=== PATIENT | female | born 1955 | race Caucasian/White ===

== ENCOUNTER 2020-02-12 01:32 | Observation (INO) ==
[2020-02-12] MEDS ORDERED: MORPHINE 4 MG/1 ML VIAL IV STA (01:58)
[2020-02-12] MEDS ORDERED: ALUM/MAG/SIMETH/LIDO VISC 1:1 30 ML BOTTLE PO STA (01:58)
[2020-02-12] MEDS ORDERED: ASPIRIN 325 MG TABLET PO STA (01:58)
[2020-02-12] MEDS ORDERED: ONDANSETRON 4 MG/2 ML VIAL IV STA (01:58)
[2020-02-12] MEDS ORDERED: NITROGLYCERIN 2% OINT 1 INCH/GM PACK TOP STA (01:58)
[2020-02-12] MEDS ORDERED: ENOXAPARIN 100 MG/ML SYRINGE SUBCUT STA (01:58)
[2020-02-12 02:17] LABS: Basophils # 0.1 10*3/uL (0.0-0.2); Basophils % 0.8 % (0.0-0.8); Eosinophils # 0.2 10*3/uL (0.0-0.87); Eosinophils % 2.3 % (0.00-10.9); Hematocrit 37.4 VOL% (35.7-47.0); Hemoglobin 12.7 GM/DL (12.0-16.0); Immature Granulocytes % 0.5 %; Immature Granulocytes Absolute 0.05 #; Lymphocytes # 2.4 10*3/uL (1.4-4.0); Mean Corpuscular Volume 94.2 FL (87-102); Mean Platelet Volume 10.8 FL (9.6-12.0); Monocytes % 6.9 % (1.7-12.7); Neutrophils % 65.5 % (38.7-73.9); Platelet Count 334 T/CUMM (130-400); Red Blood Count 3.97 MC/CUMM (3.8-5.5); Red Cell Distribution Width 14.4 % (9.3-17.3); White Blood Count 9.9 T/CUMM (4-12)
[2020-02-12 02:36] LABS: INR 0.9; PT Patient Result 10.1 SECS (9.8-11.9)
[2020-02-12 03:09] LABS: Bilirubin,Total 0.4 MG/DL (0.2-1.0); Calcium 8.5 MG/DL (8.5-10.1); Osmolality,Calculated 273.1 MOS/KG (273-304); Total Protein 7.2 G/DL (6.4-8.3)
[2020-02-12] MEDS ORDERED: GLUCAGON 1 MG VIAL IM PRN (04:07)
[2020-02-12] MEDS ORDERED: DEXTROSE 50% 25 GM/50 ML VIAL IV PRN (04:07)
[2020-02-12] MEDS ORDERED: MORPHINE 4 MG/1 ML VIAL IV PRN (04:07)
[2020-02-12] MEDS ORDERED: ACETAMINOPHEN 325 MG TABLET PO PRN (04:07)
[2020-02-12] MEDS ORDERED: ONDANSETRON 4 MG/2 ML VIAL IV PRN (04:07)
[2020-02-12] MEDS ORDERED: diphenhydrAMINE CAP 25 MG CAPSULE PO PRN (04:07)
[2020-02-12] MEDS ORDERED: guaiFENesin/DM ER 600-30 MG TABLET PO PRN (04:07)
[2020-02-12] MEDS ORDERED: NICOTINE 21 MG/24 HR PATCH TRANSDERM PRN (04:07)
[2020-02-12] MEDS ORDERED: hydrALAZINE 20 MG/1 ML VIAL IV PRN (04:07)
[2020-02-12 05:11] LABS: Risk Ratio 5.5; Thyroid Stimulating Hormone 1.11 uIU/ml (0.358-3.74)
[2020-02-12] MEDS: SODIUM CHLORIDE 0.9% 1,000 ML IV SCH ×2 (08:44→18:35)
[2020-02-12] MEDS: PARoxetine 20 MG TABLET PO SCH (08:45)
[2020-02-12] MEDS: ALPRAZolam 0.5 MG TABLET PO SCH ×4 (08:45→21:57)
[2020-02-12] MEDS: PANTOPRAZOLE 40 MG TABLET PO SCH (08:45)
[2020-02-12] MEDS ORDERED: MAGNESIUM SULF RIDER 2 GM in PREMIX 1 EACH IV PRN (13:08)
[2020-02-12] MEDS ORDERED: POTASSIUM CHLORIDE RIDER 10 MEQ in PREMIX 1 EACH IV PRN (13:08)
[2020-02-12] MEDS ORDERED: TRIAZOLAM PO SCH (21:00)
[2020-02-12] MEDS: OLMESARTAN 20 MG TABLET PO SCH (21:57)
[2020-02-12] MEDS: ROSUVASTATIN 20 MG TABLET PO SCH (21:57)
[2020-02-12] MEDS: METOPROLOL TARTRATE 25 MG TABLET PO SCH (21:57)
[2020-02-12] MEDS: LORazepam 0.5 MG TABLET PO PRN (23:42)
[2020-02-13] MEDS: SODIUM CHLORIDE 0.9% 1,000 ML IV SCH ×4 (01:36→20:13)
[2020-02-13 01:43] LABS: Apearance,Urine Slightly Hazy (Clear); Bacteria,Urine Occasional /HPF (Few); Bilirubin,Urine Negative (Negative); Blood, Urine Negative (Negative); Glucose,Urine (UA) Negative (Negative); Ketones,Urine Negative (Negative); Mucus,Urine Occasional /LPF (Occasional); Nitrite,Urine Negative (Negative); Protein,Urine Negative; RBC,Urine 1 /HPF (0-4); Squamous Epithelial Cell,Urine Occasional /HPF (0-10); Urine Color Yellow (Yellow); Urine Urobilinogen < 2.0 EU/DL (0.2-1.0); WBC,Urine 169 /HPF (0-6)
[2020-02-13 04:09] LABS: Basophils # 0.1 10*3/uL (0.0-0.2); Basophils % 0.9 % (0.0-0.8); Eosinophils # 0.2 10*3/uL (0.0-0.87); Eosinophils % 3.2 % (0.00-10.9); Hematocrit 35.6 VOL% (35.7-47.0); Hemoglobin 11.8 GM/DL (12.0-16.0); Immature Granulocytes % 0.4 %; Immature Granulocytes Absolute 0.03 #; Lymphocytes # 2.7 10*3/uL (1.4-4.0); Lymphocytes % 39.7 % (21.3-54.2); Mean Corpuscular HGB Conc 33.1 GM/DL (32-36); Mean Corpuscular Volume 94.2 FL (87-102); Mean Platelet Volume 10.4 FL (9.6-12.0); Monocytes % 7.7 % (1.7-12.7); Neutrophils % 48.1 % (38.7-73.9); Platelet Count 236 T/CUMM (130-400); Red Blood Count 3.78 MC/CUMM (3.8-5.5); Red Cell Distribution Width 14.3 % (9.3-17.3); White Blood Count 6.8 T/CUMM (4-12)
[2020-02-13 04:35] LABS: Calcium 8.5 MG/DL (8.5-10.1); Osmolality,Calculated 281.3 MOS/KG (273-304)
[2020-02-13] MEDS ORDERED: DIAZEPAM 5 MG TABLET PO ONE (06:00)
[2020-02-13] MEDS ORDERED: diphenhydrAMINE CAP 25 MG CAPSULE PO ONE (06:00)
[2020-02-13] MEDS: PARoxetine 20 MG TABLET PO SCH (08:59)
[2020-02-13] MEDS: ASPIRIN 325 MG TABLET PO SCH (09:00)
[2020-02-13] MEDS: METOPROLOL TARTRATE 25 MG TABLET PO SCH ×2 (09:00→21:16)
[2020-02-13] MEDS: PANTOPRAZOLE 40 MG TABLET PO SCH (09:00)
[2020-02-13] MEDS ORDERED: LIDOCAINE 1% 20 ML VIAL ONE (09:37)
[2020-02-13] MEDS ORDERED: NITROGLYCERIN DRIP 50 MG/250 ML BOTTLE IV ONE (09:37)
[2020-02-13] MEDS ORDERED: VERAPAMIL 5 MG/2 ML VIAL ONE (09:37)
[2020-02-13] MEDS ORDERED: MIDAZOLAM 2 MG/2 ML VIAL ONE (09:51)
[2020-02-13] MEDS ORDERED: HYDROmorphone 2 MG/1 ML VIAL ONE (09:51)
[2020-02-13] MEDS ORDERED: ENOXAPARIN 60 MG/0.6 ML SYRINGE ONE ×2 (10:07)
[2020-02-13] MEDS: ALPRAZolam 0.5 MG TABLET PO SCH ×3 (12:20→21:16)
[2020-02-13] MEDS: cefTRIAXone 1,000 MG in SYRINGE 1 EACH IV SCH (12:25)
[2020-02-13] MEDS: OLMESARTAN 20 MG TABLET PO SCH (21:16)
[2020-02-13] MEDS: ROSUVASTATIN 20 MG TABLET PO SCH (21:16)
[2020-02-13] MEDS: LORazepam 0.5 MG TABLET PO PRN (23:55)
[2020-02-14 05:04] LABS: Basophils # 0.1 10*3/uL (0.0-0.2); Basophils % 0.7 % (0.0-0.8); Eosinophils # 0.2 10*3/uL (0.0-0.87); Eosinophils % 2.9 % (0.00-10.9); Hematocrit 32.8 VOL% (35.7-47.0); Hemoglobin 10.9 GM/DL (12.0-16.0); Immature Granulocytes % 0.3 %; Immature Granulocytes Absolute 0.02 #; Lymphocytes # 2.1 10*3/uL (1.4-4.0); Mean Corpuscular HGB Conc 33.2 GM/DL (32-36); Mean Corpuscular Volume 94.8 FL (87-102); Mean Platelet Volume 10.6 FL (9.6-12.0); Monocytes % 6.7 % (1.7-12.7); Neutrophils % 58.4 % (38.7-73.9); Platelet Count 228 T/CUMM (130-400); Red Blood Count 3.46 MC/CUMM (3.8-5.5); Red Cell Distribution Width 14.1 % (9.3-17.3); White Blood Count 6.9 T/CUMM (4-12)
[2020-02-14 05:13] LABS: Calcium 8.1 MG/DL (8.5-10.1); Osmolality,Calculated 283.1 MOS/KG (273-304)
[2020-02-14 05:15] LABS: Calcium 7.9 MG/DL (8.5-10.1); Osmolality,Calculated 281.3 MOS/KG (273-304)
[2020-02-14] MEDS ORDERED: POTASSIUM CHLORIDE 20 MEQ TABLET PO ONE (07:29)
[2020-02-14] MEDS: cefTRIAXone 1,000 MG in SYRINGE 1 EACH IV SCH (08:24)
[2020-02-14] MEDS: PARoxetine 20 MG TABLET PO SCH (08:25)
[2020-02-14] MEDS: PANTOPRAZOLE 40 MG TABLET PO SCH (08:25)
[2020-02-14] MEDS: ASPIRIN 325 MG TABLET PO SCH (08:26)
[2020-02-14] MEDS: ALPRAZolam 0.5 MG TABLET PO SCH (08:26)
[2020-02-14] MEDS: METOPROLOL TARTRATE 25 MG TABLET PO SCH (08:26)
[2020-02-14 11:59] VITALS: BP 117/69
== END 2020-02-14 12:12 | disposition home or self-care (01) ==
LOC: EDUNIT# → EDBD → N.ED 01:32 → N.EDINP 01:32 → SUATTDRO 04:07 → N.EDINP 05:00 → N.TELES 05:13
PROVIDERS: ADMIT Internal Medicine; ATTEND Internal Medicine
PROC: CLCCHCL (ICD-10-PCS; 2020-02-13 10:45)

== ENCOUNTER 2022-08-10 15:49 | Inpatient (IN) ==
[2022-08-10 16:31] LABS: Basophils % 0.5 % (0.0-0.8); Eosinophils # 0.2 10*3/uL (0.0-0.87); Eosinophils % 2.3 % (0.00-10.9); Hemoglobin 13.5 GM/DL (12.0-16.0); Immature Granulocytes % 0.5 %; Immature Granulocytes Absolute 0.04 #; Lymphocytes # 1.5 10*3/uL (1.4-4.0); Lymphocytes % 18.1 % (21.3-54.2); Mean Corpuscular HGB Conc 35.5 GM/DL (32-36); Mean Corpuscular Volume 89.8 FL (87-102); Mean Platelet Volume 10.3 FL (9.6-12.0); Monocytes # 0.4 10*3/uL (0.11-0.8); Monocytes % 4.5 % (1.7-12.7); Neutrophils % 74.1 % (38.7-73.9); Platelet Count 268 T/CUMM (130-400); Red Blood Count 4.23 MC/CUMM (3.8-5.5); Red Cell Distribution Width 15.4 % (9.3-17.3); White Blood Count 8.1 T/CUMM (4-12)
[2022-08-10] MEDS ORDERED: ALUM/MAG/SIMETH/LIDO VISC 1:1 30 ML BOTTLE PO ONE (16:36)
[2022-08-10 16:40] LABS: Albumin 3.2 G/DL (3.4-5.0); Bilirubin,Total 0.4 MG/DL (0.20-1.00); Potassium 2.9 MMOL/L (3.5-5.1); Total Protein 7.2 G/DL (6.4-8.2)
[2022-08-10] MEDS ORDERED: POTASSIUM CHLORIDE 20 MEQ TABLET PO STA ×2 (16:51→18:53)
[2022-08-10] MEDS ORDERED: SODIUM CHLORIDE 0.9% 1,000 ML IV STA (16:53)
[2022-08-10] MEDS ORDERED: HYDROmorphone 1 MG/1 ML SYRINGE IV STA (18:08)
[2022-08-10] MEDS ORDERED: ONDANSETRON 4 MG/2 ML VIAL IV STA (18:08)
[2022-08-10] MEDS ORDERED: HYDROmorphone 1 MG/1 ML SYRINGE ONE (18:10)
[2022-08-10] MEDS ORDERED: ONDANSETRON 4 MG/2 ML VIAL ONE (18:10)
[2022-08-10] MEDS ORDERED: NICOTINE 21 MG/24 HR PATCH TRANSDERM PRN (18:53)
[2022-08-10] MEDS ORDERED: CALCIUM CARBONATE CHEW 500 MG TABLET PO PRN (18:53)
[2022-08-10] MEDS ORDERED: PROMETHAZINE 25 MG/1 ML VIAL IM PRN (18:53)
[2022-08-10] MEDS: LACTATED RINGERS 1,000 ML IV SCH (19:24)
[2022-08-10] MEDS ORDERED: IBUPROFEN 800 MG TABLET PO PRN (21:59)
[2022-08-10] MEDS: ALPRAZolam 0.5 MG TABLET PO SCH (22:41)
[2022-08-10] MEDS: ENOXAPARIN 40 MG/0.4 ML SYRINGE SUBCUT SCH (22:41)
[2022-08-10] MEDS: HYDROmorphone 1 MG/1 ML SYRINGE IV PRN (22:41)
[2022-08-10] MEDS: COLESTIPOL 1 GM TABLET PO SCH (22:41)
[2022-08-10] MEDS: PANTOPRAZOLE 40 MG TABLET PO SCH (22:42)
[2022-08-10] MEDS: GABAPENTIN 600 MG TABLET PO SCH (22:42)
[2022-08-11] MEDS: LACTATED RINGERS 1,000 ML IV SCH ×3 (03:59→20:45)
[2022-08-11] MEDS: HYDROmorphone 1 MG/1 ML SYRINGE IV PRN ×4 (04:37→22:53)
[2022-08-11 05:57] LABS: Basophils % 0.3 % (0.0-0.8); Eosinophils # 0.2 10*3/uL (0.0-0.87); Eosinophils % 2.4 % (0.00-10.9); Hematocrit 39.3 VOL% (35.7-47.0); Hemoglobin 13.2 GM/DL (12.0-16.0); Immature Granulocytes % 0.3 %; Immature Granulocytes Absolute 0.03 #; Lymphocytes # 1.5 10*3/uL (1.4-4.0); Lymphocytes % 16.2 % (21.3-54.2); Mean Corpuscular HGB Conc 33.6 GM/DL (32-36); Mean Corpuscular Volume 93.6 FL (87-102); Mean Platelet Volume 11.3 FL (9.6-12.0); Monocytes # 0.5 10*3/uL (0.11-0.8); Neutrophils % 75.8 % (38.7-73.9); Platelet Count 243 T/CUMM (130-400); Red Cell Distribution Width 15.6 % (9.3-17.3); White Blood Count 9.5 T/CUMM (4-12)
[2022-08-11 06:15] LABS: Calcium 8.7 MG/DL (8.5-10.1); Potassium 3.5 MMOL/L (3.5-5.1)
[2022-08-11] MEDS: COLESTIPOL 1 GM TABLET PO SCH ×2 (08:50→20:47)
[2022-08-11] MEDS: ALPRAZolam 0.5 MG TABLET PO SCH ×2 (08:50→20:48)
[2022-08-11] MEDS: GABAPENTIN 600 MG TABLET PO SCH ×3 (08:50→20:47)
[2022-08-11] MEDS: VALSARTAN 160 MG TABLET PO SCH (08:50)
[2022-08-11] MEDS: NON-FORMULARY MEDICATION (Fluticasone-Umeclidin-Vilanter [Trelegy Ellipta] 200-62.5-25 mcg INH SCH ×2 (08:58→20:46)
[2022-08-11] MEDS ORDERED: hydroCHLOROthiazide 25 MG TABLET PO SCH (09:00)
[2022-08-11] MEDS ORDERED: ALPRAZolam 0.5 MG TABLET PO SCH (09:00)
[2022-08-11] MEDS ORDERED: SODIUM CHLORIDE 0.9% 500 ML IV ONE (16:05)
[2022-08-11] MEDS: ENOXAPARIN 40 MG/0.4 ML SYRINGE SUBCUT SCH (20:47)
[2022-08-11] MEDS: PANTOPRAZOLE 40 MG TABLET PO SCH (20:48)
[2022-08-11] MEDS: PARoxetine 20 MG TABLET PO SCH (20:48)
[2022-08-12] MEDS: HYDROmorphone 1 MG/1 ML SYRINGE IV PRN ×3 (03:12→21:32)
[2022-08-12] MEDS: LACTATED RINGERS 1,000 ML IV SCH ×4 (04:48→21:32)
[2022-08-12 06:10] LABS: Basophils % 0.4 % (0.0-0.8); Eosinophils # 0.2 10*3/uL (0.0-0.87); Hematocrit 37.5 VOL% (35.7-47.0); Hemoglobin 12.6 GM/DL (12.0-16.0); Immature Granulocytes % 0.5 %; Immature Granulocytes Absolute 0.06 #; Lymphocytes # 2.5 10*3/uL (1.4-4.0); Mean Corpuscular HGB Conc 33.6 GM/DL (32-36); Mean Corpuscular Volume 96.2 FL (87-102); Mean Platelet Volume 10.5 FL (9.6-12.0); Monocytes # 0.6 10*3/uL (0.11-0.8); Monocytes % 5.7 % (1.7-12.7); Neutrophils % 69.4 % (38.7-73.9); Platelet Count 271 T/CUMM (130-400); White Blood Count 11.3 T/CUMM (4-12)
[2022-08-12 06:19] LABS: Calcium 8.8 MG/DL (8.5-10.1); Osmolality,Calculated 273.1 MOS/KG (273-304); Potassium 3.3 MMOL/L (3.5-5.1)
[2022-08-12] MEDS: COLESTIPOL 1 GM TABLET PO SCH ×2 (08:35→21:28)
[2022-08-12] MEDS: GABAPENTIN 600 MG TABLET PO SCH ×3 (08:35→21:28)
[2022-08-12] MEDS: ALPRAZolam 0.5 MG TABLET PO SCH ×2 (08:35→21:28)
[2022-08-12] MEDS: VALSARTAN 160 MG TABLET PO SCH (08:37)
[2022-08-12] MEDS: NON-FORMULARY MEDICATION (Fluticasone-Umeclidin-Vilanter [Trelegy Ellipta] 200-62.5-25 mcg INH SCH (08:37)
[2022-08-12] MEDS: PANTOPRAZOLE 40 MG TABLET PO SCH (21:27)
[2022-08-12] MEDS: ENOXAPARIN 40 MG/0.4 ML SYRINGE SUBCUT SCH (21:27)
[2022-08-12] MEDS: PARoxetine 20 MG TABLET PO SCH (21:27)
[2022-08-13] MEDS: LACTATED RINGERS 1,000 ML IV SCH (05:35)
[2022-08-13 06:18] LABS: Basophils % 0.4 % (0.0-0.8); Eosinophils # 0.2 10*3/uL (0.0-0.87); Eosinophils % 2.9 % (0.00-10.9); Hematocrit 31.1 VOL% (35.7-47.0); Hemoglobin 10.5 GM/DL (12.0-16.0); Immature Granulocytes % 0.5 %; Immature Granulocytes Absolute 0.04 #; Lymphocytes # 1.5 10*3/uL (1.4-4.0); Lymphocytes % 19.5 % (21.3-54.2); Mean Corpuscular HGB Conc 33.8 GM/DL (32-36); Mean Corpuscular Volume 93.1 FL (87-102); Mean Platelet Volume 10.3 FL (9.6-12.0); Monocytes # 0.4 10*3/uL (0.11-0.8); Monocytes % 5.2 % (1.7-12.7); Neutrophils % 71.5 % (38.7-73.9); Platelet Count 195 T/CUMM (130-400); Red Blood Count 3.34 MC/CUMM (3.8-5.5); Red Cell Distribution Width 15.2 % (9.3-17.3); White Blood Count 7.5 T/CUMM (4-12)
[2022-08-13] MEDS: HYDROmorphone 1 MG/1 ML SYRINGE IV PRN (06:27)
[2022-08-13 06:37] LABS: Calcium 8.6 MG/DL (8.5-10.1); Osmolality,Calculated 273.8 MOS/KG (273-304)
[2022-08-13] MEDS: COLESTIPOL 1 GM TABLET PO SCH (08:22)
[2022-08-13] MEDS: ALPRAZolam 0.5 MG TABLET PO SCH (08:22)
[2022-08-13] MEDS: VALSARTAN 160 MG TABLET PO SCH (08:22)
[2022-08-13] MEDS: GABAPENTIN 600 MG TABLET PO SCH (08:22)
[2022-08-13] MEDS ORDERED: NON-FORMULARY MEDICATION (Fluticasone-Umeclidin-Vilanter [Trelegy Ellipta] 200-62.5-25 mcg INH SCH (09:00)
[2022-08-13] MEDS ORDERED: POTASSIUM CHLORIDE 20 MEQ TABLET PO ONE (10:00)
[2022-08-13 11:12] VITALS: BP 106/62
== END 2022-08-13 13:47 | disposition home or self-care (01) | DRG 439 ==
LOC: N.ED 15:49 → N.EDINP 18:53 → N.3E 19:50
PROVIDERS: ADMIT Hospitalist; ATTEND Hospitalist

== ENCOUNTER 2022-08-27 02:32 | Inpatient (IN) ==
[2022-08-27] MEDS ORDERED: SODIUM CHLORIDE 0.9% 1,000 ML IV STA (02:48)
[2022-08-27] MEDS ORDERED: HYDROmorphone 1 MG/1 ML SYRINGE IV STA (02:48)
[2022-08-27] MEDS ORDERED: PANTOPRAZOLE 40 MG VIAL IV STA (02:48)
[2022-08-27] MEDS ORDERED: ONDANSETRON 4 MG/2 ML VIAL IV STA (02:48)
[2022-08-27 03:06] LABS: Basophils % 0.5 % (0.0-0.8); Eosinophils # 0.2 10*3/uL (0.0-0.87); Eosinophils % 1.8 % (0.00-10.9); Hemoglobin 12.5 GM/DL (12.0-16.0); Immature Granulocytes % 0.5 %; Immature Granulocytes Absolute 0.04 #; Lymphocytes # 2.3 10*3/uL (1.4-4.0); Lymphocytes % 28.7 % (21.3-54.2); Mean Corpuscular HGB Conc 33.8 GM/DL (32-36); Mean Corpuscular Volume 93.9 FL (87-102); Mean Platelet Volume 9.2 FL (9.6-12.0); Monocytes # 0.4 10*3/uL (0.11-0.8); Monocytes % 5.1 % (1.7-12.7); Neutrophils % 63.4 % (38.7-73.9); Platelet Count 401 T/CUMM (130-400); Red Blood Count 3.94 MC/CUMM (3.8-5.5); Red Cell Distribution Width 15.8 % (9.3-17.3); White Blood Count 8.2 T/CUMM (4-12)
[2022-08-27 03:27] LABS: Alanine Aminotransferase 11 U/L (13-56); Albumin 3.1 G/DL (3.4-5.0); Alkaline Phosphatase 77 U/L (45-117); Amylase 460 U/L (25-115); Aspartate Amino Transferase 7 U/L (0-37); Bilirubin,Total < 0.39 MG/DL (0.20-1.00); Blood Urea Nitrogen 17 MG/DL (7-18); Calcium 9.2 MG/DL (8.5-10.1); Carbon Dioxide 21 MMOL/L (21-32); Chloride 108 MMOL/L (98-107); Glucose 105 MG/DL (74-106); Osmolality,Calculated 280.4 MOS/KG (273-304); Potassium 3.3 MMOL/L (3.5-5.1); Sodium 140 MMOL/L (136-145); Total Protein 6.8 G/DL (6.4-8.2)
[2022-08-27] MEDS ORDERED: NICOTINE 21 MG/24 HR PATCH TRANSDERM PRN (04:33)
[2022-08-27] MEDS ORDERED: POTASSIUM CHLORIDE RIDER 10 MEQ/100 ML PREMIX IV ONE (04:33)
[2022-08-27] MEDS ORDERED: hydrALAZINE 20 MG/1 ML VIAL IV PRN (04:33)
[2022-08-27] MEDS ORDERED: ALBUTEROL/IPRATROPIUM 3 ML NEB RESP TX PRN (05:04)
[2022-08-27] MEDS: HYDROmorphone 1 MG/1 ML SYRINGE IV PRN ×5 (05:10→17:43)
[2022-08-27] MEDS: LACTATED RINGERS 1,000 ML IV SCH ×2 (05:16→17:42)
[2022-08-27] MEDS: ONDANSETRON 4 MG/2 ML VIAL IV PRN ×4 (06:57→21:26)
[2022-08-27 07:05] LABS: Bacteria,Urine Occasional /HPF (Few); Mucus,Urine Occasional /LPF (Occasional); RBC,Urine 7 /HPF (0-4); Squamous Epithelial Cell,Urine Occasional /HPF (0-10)
[2022-08-27 07:07] LABS: Bilirubin,Urine Negative (Negative); Blood, Urine Trace mg/dL (Negative); Glucose,Urine (UA) Negative (Negative); Ketones,Urine Negative (Negative); Nitrite,Urine Positive (Negative); Protein,Urine Trace mg/dL (Negative); Urine Appearance Slightly Hazy (Clear); Urine Color Yellow (Yellow); Urine Urobilinogen 0.2 eU/dL (<2.0); Urine pH 5.5 (4.5-8.0)
[2022-08-27 07:32] LABS: Barbiturates Screen,Urine Negative (Negative); Benzodiazepines Screen,Urine Positive (Negative); Cannabinoid Screen,Urine Negative (Negative); Opiate Screen,Urine Positive (Negative); Phencyclidine Screen,Urine Negative (Negative)
[2022-08-27] MEDS: cefTRIAXone 1,000 MG in SODIUM CHLORIDE 0.9% 100 ML IV SCH (09:19)
[2022-08-27] MEDS: ENOXAPARIN 40 MG/0.4 ML SYRINGE SUBCUT SCH (21:29)
[2022-08-27] MEDS: fentaNYL 100 MCG/2 ML VIAL IV PRN ×2 (21:36→23:43)
[2022-08-28] MEDS: PROMETHAZINE INJ 25 MG in SODIUM CHLORIDE 0.9% 50 ML IV PRN (00:26)
[2022-08-28] MEDS: LACTATED RINGERS 1,000 ML IV SCH ×4 (00:27→21:27)
[2022-08-28] MEDS: ONDANSETRON 4 MG/2 ML VIAL IV PRN ×3 (04:13→17:46)
[2022-08-28] MEDS: fentaNYL 100 MCG/2 ML VIAL IV PRN (05:46)
[2022-08-28 07:09] LABS: Basophils % 0.1 % (0.0-0.8); Immature Granulocytes % 0.9 %; Immature Granulocytes Absolute 0.18 #; Lymphocytes % 4.7 % (21.3-54.2); Mean Corpuscular HGB Conc 34.9 GM/DL (32-36); Mean Corpuscular Volume 92.5 FL (87-102); Mean Platelet Volume 9.3 FL (9.6-12.0); Monocytes # 0.5 10*3/uL (0.11-0.8); Monocytes % 2.6 % (1.7-12.7); Neutrophils % 91.7 % (38.7-73.9); Platelet Count 410 T/CUMM (130-400); Red Blood Count 4.65 MC/CUMM (3.8-5.5); Red Cell Distribution Width 16.3 % (9.3-17.3); White Blood Count 21.2 T/CUMM (4-12)
[2022-08-28 07:14] LABS: Band Neutrophils 1 % (0-10); Lymphocytes 2 % (20-55); Platelet Estimate Adequate; Total Cells Counted 100
[2022-08-28 07:48] LABS: Albumin 3.2 G/DL (3.4-5.0); Bilirubin,Total 0.5 MG/DL (0.20-1.00); Calcium 9.8 MG/DL (8.5-10.1); Osmolality,Calculated 281.5 MOS/KG (273-304); Potassium 3.2 MMOL/L (3.5-5.1); Total Protein 6.7 G/DL (6.4-8.2)
[2022-08-28] MEDS: HYDROmorphone 1 MG/1 ML SYRINGE IV PRN ×2 (08:30→17:47)
[2022-08-28] MEDS: cefTRIAXone 1,000 MG in SODIUM CHLORIDE 0.9% 100 ML IV SCH (09:56)
[2022-08-28] MEDS: PANTOPRAZOLE 40 MG VIAL IV SCH (09:56)
[2022-08-28] MEDS: NICOTINE 21 MG/24 HR PATCH TRANSDERM SCH (17:47)
[2022-08-28] MEDS: ENOXAPARIN 40 MG/0.4 ML SYRINGE SUBCUT SCH (21:25)
[2022-08-29] MEDS: HYDROmorphone 1 MG/1 ML SYRINGE IV PRN ×6 (00:26→21:11)
[2022-08-29] MEDS: ONDANSETRON 4 MG/2 ML VIAL IV PRN ×5 (00:29→21:09)
[2022-08-29] MEDS: POTASSIUM CHLORIDE RIDER 10 MEQ/100 ML PREMIX IV PRN ×5 (01:10→09:48)
[2022-08-29] MEDS: LACTATED RINGERS 1,000 ML IV SCH ×4 (01:30→21:14)
[2022-08-29 05:58] LABS: Basophils % 0.1 % (0.0-0.8); Hematocrit 36.6 VOL% (35.7-47.0); Hemoglobin 12.6 GM/DL (12.0-16.0); Immature Granulocytes % 0.7 %; Immature Granulocytes Absolute 0.16 #; Lymphocytes # 1.3 10*3/uL (1.4-4.0); Lymphocytes % 6.1 % (21.3-54.2); Mean Corpuscular HGB Conc 34.4 GM/DL (32-36); Mean Corpuscular Volume 91.5 FL (87-102); Mean Platelet Volume 9.6 FL (9.6-12.0); Monocytes # 0.5 10*3/uL (0.11-0.8); Monocytes % 2.3 % (1.7-12.7); Neutrophils % 90.8 % (38.7-73.9); Platelet Count 391 T/CUMM (130-400); Red Cell Distribution Width 15.9 % (9.3-17.3)
[2022-08-29 06:23] LABS: Band Neutrophils 1 % (0-10); Lymphocytes 4 % (20-55); Platelet Estimate Normal; Total Cells Counted 100
[2022-08-29] MEDS: NICOTINE 21 MG/24 HR PATCH TRANSDERM SCH (09:32)
[2022-08-29] MEDS: PANTOPRAZOLE 40 MG VIAL IV SCH (09:48)
[2022-08-29] MEDS: cefTRIAXone 1,000 MG in SODIUM CHLORIDE 0.9% 100 ML IV SCH (11:27)
[2022-08-29] MEDS ORDERED: POTASSIUM CHLORIDE 20 MEQ TABLET PO ONE (12:32)
[2022-08-29] MEDS: ENOXAPARIN 40 MG/0.4 ML SYRINGE SUBCUT SCH (21:12)
[2022-08-30] MEDS: ONDANSETRON 4 MG/2 ML VIAL IV PRN ×2 (03:26→08:56)
[2022-08-30] MEDS: HYDROmorphone 1 MG/1 ML SYRINGE IV PRN ×5 (03:28→20:53)
[2022-08-30 06:12] LABS: Basophils % 0.2 % (0.0-0.8); Eosinophils % 0.1 % (0.00-10.9); Hematocrit 31.1 VOL% (35.7-47.0); Hemoglobin 10.6 GM/DL (12.0-16.0); Immature Granulocytes % 0.9 %; Immature Granulocytes Absolute 0.12 #; Lymphocytes # 0.9 10*3/uL (1.4-4.0); Lymphocytes % 6.6 % (21.3-54.2); Mean Corpuscular HGB Conc 34.1 GM/DL (32-36); Mean Corpuscular Volume 92.6 FL (87-102); Mean Platelet Volume 9.8 FL (9.6-12.0); Monocytes # 0.4 10*3/uL (0.11-0.8); Monocytes % 2.9 % (1.7-12.7); Neutrophils % 89.3 % (38.7-73.9); Platelet Count 231 T/CUMM (130-400); Red Blood Count 3.36 MC/CUMM (3.8-5.5); Red Cell Distribution Width 16.2 % (9.3-17.3); White Blood Count 13.29 T/CUMM (4-12)
[2022-08-30 06:40] LABS: Calcium 8.2 MG/DL (8.5-10.1); Osmolality,Calculated 275.8 MOS/KG (273-304); Potassium 2.8 MMOL/L (3.5-5.1)
[2022-08-30] MEDS: LACTATED RINGERS 1,000 ML IV SCH ×3 (08:32→18:45)
[2022-08-30] MEDS: NICOTINE 21 MG/24 HR PATCH TRANSDERM SCH (08:55)
[2022-08-30] MEDS: PANTOPRAZOLE 40 MG VIAL IV SCH (08:55)
[2022-08-30] MEDS: cefTRIAXone 1,000 MG in SODIUM CHLORIDE 0.9% 100 ML IV SCH (08:55)
[2022-08-30] MEDS ORDERED: POTASSIUM CHLORIDE 20 MEQ TABLET PO SCH (09:00)
[2022-08-30] MEDS: POTASSIUM CHLORIDE 20 MEQ TABLET PO SCH ×3 (10:30→20:52)
[2022-08-30] MEDS: PROMETHAZINE INJ 25 MG in SODIUM CHLORIDE 0.9% 50 ML IV PRN (15:30)
[2022-08-30] MEDS: ENOXAPARIN 40 MG/0.4 ML SYRINGE SUBCUT SCH (20:52)
[2022-08-31 05:51] LABS: Basophils % 0.2 % (0.0-0.8); Eosinophils # 0.1 10*3/uL (0.0-0.87); Eosinophils % 0.8 % (0.00-10.9); Hematocrit 33.6 VOL% (35.7-47.0); Hemoglobin 11.5 GM/DL (12.0-16.0); Immature Granulocytes % 0.5 %; Immature Granulocytes Absolute 0.06 #; Lymphocytes # 1.4 10*3/uL (1.4-4.0); Lymphocytes % 10.9 % (21.3-54.2); Mean Corpuscular HGB Conc 34.2 GM/DL (32-36); Mean Corpuscular Volume 95.2 FL (87-102); Mean Platelet Volume 10.1 FL (9.6-12.0); Monocytes # 0.6 10*3/uL (0.11-0.8); Monocytes % 4.7 % (1.7-12.7); Neutrophils % 82.9 % (38.7-73.9); Platelet Count 269 T/CUMM (130-400); Red Blood Count 3.53 MC/CUMM (3.8-5.5); White Blood Count 12.66 T/CUMM (4-12)
[2022-08-31 06:03] LABS: Calcium 8.7 MG/DL (8.5-10.1); Osmolality,Calculated 266.4 MOS/KG (273-304)
[2022-08-31] MEDS: HYDROmorphone 1 MG/1 ML SYRINGE IV PRN (06:03)
[2022-08-31 07:31] VITALS: BP 156/83
[2022-08-31] MEDS: LACTATED RINGERS 1,000 ML IV SCH (07:56)
[2022-08-31] MEDS: cefTRIAXone 1,000 MG in SODIUM CHLORIDE 0.9% 100 ML IV SCH (09:15)
[2022-08-31] MEDS: POTASSIUM CHLORIDE 20 MEQ TABLET PO SCH (09:15)
[2022-08-31] MEDS: PANTOPRAZOLE 40 MG VIAL IV SCH (09:15)
[2022-08-31] MEDS: NICOTINE 21 MG/24 HR PATCH TRANSDERM SCH (09:15)
[2022-08-31] MEDS ORDERED: hydrALAZINE 25 MG TABLET PO SCH (21:00)
== END 2022-08-31 12:20 | disposition home or self-care (01) | DRG 439 ==
LOC: EDUNIT# → EDBD → N.ED 02:32 → N.EDINP 04:33 → N.3E 14:50
PROVIDERS: ADMIT Hospitalist; ATTEND Hospitalist

== ENCOUNTER 2022-09-01 15:50 | Inpatient (IN) ==
[2022-09-01] MEDS ORDERED: ONDANSETRON 4 MG/2 ML VIAL IV STA (16:32)
[2022-09-01] MEDS ORDERED: SODIUM CHLORIDE 0.9% 1,000 ML IV STA (16:32)
[2022-09-01] MEDS ORDERED: HYDROmorphone 1 MG/1 ML SYRINGE IV STA (16:32)
[2022-09-01] MEDS ORDERED: PANTOPRAZOLE 40 MG VIAL IV STA (16:32)
[2022-09-01 16:57] LABS: Basophils % 0.2 % (0.0-0.8); Eosinophils # 0.1 10*3/uL (0.0-0.87); Eosinophils % 1.5 % (0.00-10.9); Hematocrit 28.9 VOL% (35.7-47.0); Immature Granulocytes % 0.6 %; Immature Granulocytes Absolute 0.05 #; Lymphocytes # 1.3 10*3/uL (1.4-4.0); Lymphocytes % 14.5 % (21.3-54.2); Mean Corpuscular HGB Conc 34.6 GM/DL (32-36); Mean Corpuscular Volume 92.9 FL (87-102); Mean Platelet Volume 9.3 FL (9.6-12.0); Monocytes # 0.7 10*3/uL (0.11-0.8); Monocytes % 7.8 % (1.7-12.7); Neutrophils % 75.4 % (38.7-73.9); Platelet Count 282 T/CUMM (130-400); Red Blood Count 3.11 MC/CUMM (3.8-5.5); Red Cell Distribution Width 15.6 % (9.3-17.3); White Blood Count 8.83 T/CUMM (4-12)
[2022-09-01 17:20] LABS: Albumin 2.3 G/DL (3.4-5.0); Bilirubin,Total 0.4 MG/DL (0.20-1.00); Calcium 8.6 MG/DL (8.5-10.1); Osmolality,Calculated 273.7 MOS/KG (273-304); Potassium 2.7 MMOL/L (3.5-5.1); Total Protein 6.2 G/DL (6.4-8.2)
[2022-09-01] MEDS ORDERED: ACETAMINOPHEN 325 MG TABLET PO PRN (17:32)
[2022-09-01] MEDS ORDERED: POTASSIUM CHLORIDE 20 MEQ TABLET PO STA (17:45)
[2022-09-01] MEDS ORDERED: POTASSIUM CHLORIDE 20 MEQ TABLET PO PRN (17:45)
[2022-09-01] MEDS ORDERED: MAGNESIUM SULF RIDER 1 GM/100 ML PREMIX IV ONE (17:49)
[2022-09-01] MEDS: ENOXAPARIN 40 MG/0.4 ML SYRINGE SUBCUT SCH (20:42)
[2022-09-01] MEDS: SODIUM CHLORIDE 0.9% 1,000 ML IV SCH (20:45)
[2022-09-01] MEDS: ONDANSETRON 4 MG/2 ML VIAL IV PRN (22:18)
[2022-09-01] MEDS: HYDROmorphone 1 MG/1 ML SYRINGE IV PRN (22:20)
[2022-09-02] MEDS: POTASSIUM CHLORIDE 20 MEQ TABLET PO PRN ×4 (01:44→09:18)
[2022-09-02] MEDS: HYDROmorphone 1 MG/1 ML SYRINGE IV PRN ×5 (02:59→21:10)
[2022-09-02] MEDS: ONDANSETRON 4 MG/2 ML VIAL IV PRN ×4 (03:04→22:06)
[2022-09-02] MEDS: SODIUM CHLORIDE 0.9% 1,000 ML IV SCH ×3 (04:46→17:58)
[2022-09-02 07:04] LABS: Basophils % 0.5 % (0.0-0.8); Eosinophils # 0.3 10*3/uL (0.0-0.87); Eosinophils % 4.1 % (0.00-10.9); Hematocrit 26.9 VOL% (35.7-47.0); Hemoglobin 9.1 GM/DL (12.0-16.0); Immature Granulocytes % 0.8 %; Immature Granulocytes Absolute 0.06 #; Lymphocytes # 1.5 10*3/uL (1.4-4.0); Lymphocytes % 19.3 % (21.3-54.2); Mean Corpuscular HGB Conc 33.8 GM/DL (32-36); Mean Corpuscular Volume 96.8 FL (87-102); Mean Platelet Volume 9.3 FL (9.6-12.0); Monocytes # 0.6 10*3/uL (0.11-0.8); Monocytes % 8.5 % (1.7-12.7); Neutrophils % 66.8 % (38.7-73.9); Platelet Count 239 T/CUMM (130-400); Red Blood Count 2.78 MC/CUMM (3.8-5.5); Red Cell Distribution Width 15.9 % (9.3-17.3); White Blood Count 7.55 T/CUMM (4-12)
[2022-09-02 07:20] LABS: Alanine Aminotransferase 11 U/L (13-56); Albumin 2.1 G/DL (3.4-5.0); Alkaline Phosphatase 55 U/L (45-117); Aspartate Amino Transferase 9 U/L (0-37); Bilirubin,Total < 0.39 MG/DL (0.20-1.00); Calcium 8.2 MG/DL (8.5-10.1); Total Protein 5.8 G/DL (6.4-8.2)
[2022-09-02 07:21] LABS: Blood Urea Nitrogen 6 MG/DL (7-18); Carbon Dioxide 25 MMOL/L (21-32); Chloride 104 MMOL/L (98-107); Glucose 100 MG/DL (74-106); Osmolality,Calculated 267.1 MOS/KG (273-304); Potassium 2.9 MMOL/L (3.5-5.1); Sodium 135 MMOL/L (136-145)
[2022-09-02] MEDS: PANTOPRAZOLE 40 MG TABLET PO SCH (09:17)
[2022-09-02] MEDS: ENOXAPARIN 40 MG/0.4 ML SYRINGE SUBCUT SCH (21:14)
[2022-09-03] MEDS: HYDROmorphone 1 MG/1 ML SYRINGE IV PRN ×5 (01:05→23:31)
[2022-09-03] MEDS: SODIUM CHLORIDE 0.9% 1,000 ML IV SCH ×3 (01:07→23:33)
[2022-09-03] MEDS: ONDANSETRON 4 MG/2 ML VIAL IV PRN ×4 (04:00→23:27)
[2022-09-03 06:09] LABS: Basophils % 0.6 % (0.0-0.8); Eosinophils # 0.4 10*3/uL (0.0-0.87); Eosinophils % 6.3 % (0.00-10.9); Hematocrit 25.5 VOL% (35.7-47.0); Hemoglobin 8.3 GM/DL (12.0-16.0); Immature Granulocytes Absolute 0.07 #; Lymphocytes # 1.6 10*3/uL (1.4-4.0); Lymphocytes % 24.2 % (21.3-54.2); Mean Corpuscular HGB Conc 32.5 GM/DL (32-36); Mean Corpuscular Volume 98.1 FL (87-102); Mean Platelet Volume 9.5 FL (9.6-12.0); Monocytes # 0.6 10*3/uL (0.11-0.8); Monocytes % 8.7 % (1.7-12.7); Neutrophils % 59.2 % (38.7-73.9); Platelet Count 267 T/CUMM (130-400); Red Cell Distribution Width 16.1 % (9.3-17.3); White Blood Count 6.78 T/CUMM (4-12)
[2022-09-03 06:35] LABS: Osmolality,Calculated 276.4 MOS/KG (273-304)
[2022-09-03] MEDS: PANTOPRAZOLE 40 MG TABLET PO SCH (09:39)
[2022-09-03] MEDS: POTASSIUM CHLORIDE 20 MEQ TABLET PO PRN ×4 (09:39→18:20)
[2022-09-03] MEDS: ENOXAPARIN 40 MG/0.4 ML SYRINGE SUBCUT SCH (21:01)
[2022-09-04 02:47] LABS: Basophils % 0.3 % (0.0-0.8); Eosinophils # 0.3 10*3/uL (0.0-0.87); Eosinophils % 5.3 % (0.00-10.9); Hemoglobin 8.2 GM/DL (12.0-16.0); Immature Granulocytes % 1.2 %; Immature Granulocytes Absolute 0.08 #; Lymphocytes # 1.9 10*3/uL (1.4-4.0); Lymphocytes % 29.5 % (21.3-54.2); Mean Corpuscular HGB Conc 32.8 GM/DL (32-36); Mean Platelet Volume 9.4 FL (9.6-12.0); Monocytes # 0.6 10*3/uL (0.11-0.8); Monocytes % 8.5 % (1.7-12.7); Neutrophils % 55.2 % (38.7-73.9); Platelet Count 277 T/CUMM (130-400); Red Cell Distribution Width 16.2 % (9.3-17.3); White Blood Count 6.44 T/CUMM (4-12)
[2022-09-04 03:24] LABS: Calcium 7.7 MG/DL (8.5-10.1); Osmolality,Calculated 275.4 MOS/KG (273-304); Potassium 4.2 MMOL/L (3.5-5.1)
[2022-09-04] MEDS: PANTOPRAZOLE 40 MG TABLET PO SCH (09:00)
[2022-09-04] MEDS: SODIUM CHLORIDE 0.9% 1,000 ML IV SCH ×3 (09:03→20:55)
[2022-09-04] MEDS: hydrALAZINE 25 MG TABLET PO SCH ×2 (11:17→20:56)
[2022-09-04] MEDS: ONDANSETRON 4 MG/2 ML VIAL IV PRN ×2 (14:19→20:56)
[2022-09-04] MEDS: HYDROmorphone 1 MG/1 ML SYRINGE IV PRN ×2 (14:22→20:56)
[2022-09-04] MEDS: ENOXAPARIN 40 MG/0.4 ML SYRINGE SUBCUT SCH (20:55)
[2022-09-05] MEDS: ONDANSETRON 4 MG/2 ML VIAL IV PRN ×2 (01:31→08:49)
[2022-09-05] MEDS ORDERED: hydrALAZINE 20 MG/1 ML VIAL IV PRN (04:10)
[2022-09-05 05:55] LABS: Basophils % 0.6 % (0.0-0.8); Eosinophils # 0.4 10*3/uL (0.0-0.87); Eosinophils % 6.3 % (0.00-10.9); Hematocrit 26.6 VOL% (35.7-47.0); Hemoglobin 8.2 GM/DL (12.0-16.0); Immature Granulocytes % 2.6 %; Immature Granulocytes Absolute 0.16 #; Lymphocytes # 2.1 10*3/uL (1.4-4.0); Lymphocytes % 33.2 % (21.3-54.2); Mean Corpuscular HGB Conc 30.8 GM/DL (32-36); Mean Corpuscular Volume 104.3 FL (87-102); Mean Platelet Volume 9.6 FL (9.6-12.0); Monocytes # 0.5 10*3/uL (0.11-0.8); Monocytes % 8.3 % (1.7-12.7); Platelet Count 296 T/CUMM (130-400); Red Blood Count 2.55 MC/CUMM (3.8-5.5); White Blood Count 6.24 T/CUMM (4-12)
[2022-09-05 06:13] LABS: Osmolality,Calculated 275.4 MOS/KG (273-304)
[2022-09-05 06:15] LABS: Barbiturates Screen,Urine Negative (Negative); Benzodiazepines Screen,Urine Positive (Negative); Cannabinoid Screen,Urine Negative (Negative); Opiate Screen,Urine Negative (Negative); Phencyclidine Screen,Urine Negative (Negative)
[2022-09-05] MEDS: PANTOPRAZOLE 40 MG TABLET PO SCH (08:17)
[2022-09-05] MEDS: POTASSIUM CHLORIDE 20 MEQ TABLET PO PRN (08:17)
[2022-09-05] MEDS: hydrALAZINE 25 MG TABLET PO SCH (08:17)
[2022-09-05] MEDS: HYDROmorphone 1 MG/1 ML SYRINGE IV PRN (08:52)
[2022-09-05 13:04] VITALS: BP 170/90
== END 2022-09-05 13:10 | disposition home or self-care (01) | DRG 439 ==
LOC: N.ED 15:50 → N.EDINP 15:50 → N.2W 19:09 → N.3E 09-05 10:07
PROVIDERS: ADMIT Hospitalist; ATTEND Hospitalist

== ENCOUNTER 2022-09-17 22:41 | Inpatient (IN) ==
[2022-09-17] MEDS ORDERED: ONDANSETRON 4 MG/2 ML VIAL IV ONE (23:00)
[2022-09-17] MEDS ORDERED: DICYCLOMINE 20 MG/2 ML AMP IM ONE (23:00)
[2022-09-17] MEDS ORDERED: HYDROmorphone 1 MG/1 ML SYRINGE IV STA (23:01)
[2022-09-17 23:52] LABS: Bacteria,Urine Moderate /HPF (Few); Mucus,Urine Occasional /LPF (Occasional); RBC,Urine 8 /HPF (0-4); Squamous Epithelial Cell,Urine Occasional /HPF (0-10)
[2022-09-17 23:53] LABS: Basophils % 0.4 % (0.0-0.8); Eosinophils # 0.3 10*3/uL (0.0-0.87); Eosinophils % 3.9 % (0.00-10.9); Hematocrit 31.9 VOL% (35.7-47.0); Hemoglobin 10.8 GM/DL (12.0-16.0); Immature Granulocytes % 0.4 %; Immature Granulocytes Absolute 0.03 #; Lymphocytes # 1.6 10*3/uL (1.4-4.0); Lymphocytes % 18.4 % (21.3-54.2); Mean Corpuscular HGB Conc 33.9 GM/DL (32-36); Mean Corpuscular Volume 95.5 FL (87-102); Mean Platelet Volume 9.2 FL (9.6-12.0); Monocytes # 0.5 10*3/uL (0.11-0.8); Monocytes % 5.5 % (1.7-12.7); Neutrophils % 71.4 % (38.7-73.9); Platelet Count 345 T/CUMM (130-400); Red Blood Count 3.34 MC/CUMM (3.8-5.5); Red Cell Distribution Width 15.1 % (9.3-17.3); White Blood Count 8.51 T/CUMM (4-12)
[2022-09-17 23:55] LABS: Bilirubin,Urine Negative (Negative); Blood, Urine Trace mg/dL (Negative); Glucose,Urine (UA) Negative (Negative); Ketones,Urine Negative (Negative); Nitrite,Urine Negative (Negative); Protein,Urine Negative (Negative); Urine Appearance Slightly Cloudy (Clear); Urine Color Yellow (Yellow); Urine Specific Gravity 1.015 (1.001-1.035)
[2022-09-17 23:56] LABS: Urine Urobilinogen 0.2 eU/dL (<2.0)
[2022-09-18 00:02] LABS: PT Patient Result 11.2 SECS (10.1-12.1)
[2022-09-18 00:13] LABS: Albumin 2.8 G/DL (3.4-5.0); Bilirubin,Total 0.4 MG/DL (0.20-1.00); Calcium 8.3 MG/DL (8.5-10.1); Osmolality,Calculated 272.7 MOS/KG (273-304); Potassium 2.7 MMOL/L (3.5-5.1); Total Protein 6.1 G/DL (6.4-8.2)
[2022-09-18] MEDS ORDERED: cefTRIAXone 1,000 MG in SODIUM CHLORIDE 0.9% 100 ML IV STA (00:17)
[2022-09-18] MEDS ORDERED: POTASSIUM CHLORIDE RIDER 20 MEQ/100 ML PREMIX IV STA (00:17)
[2022-09-18] MEDS ORDERED: POTASSIUM CHLORIDE 20 MEQ TABLET PO STA (00:18)
[2022-09-18] MEDS: POTASSIUM CHLORIDE RIDER 10 MEQ/100 ML PREMIX IV SCH ×2 (01:36→02:44)
[2022-09-18] MEDS ORDERED: MAGNESIUM SULFATE 1 GM/2 ML VIAL IV ONE (01:44)
[2022-09-18] MEDS ORDERED: MAGNESIUM SULF RIDER 2 GM/50 ML PREMIX IV STA (01:46)
[2022-09-18] MEDS ORDERED: hydrALAZINE 20 MG/1 ML VIAL IV PRN (02:25)
[2022-09-18] MEDS ORDERED: NICOTINE 21 MG/24 HR PATCH TRANSDERM PRN (02:25)
[2022-09-18] MEDS ORDERED: SIMETHICONE CHEW 125 MG TABLET PO PRN (02:25)
[2022-09-18] MEDS ORDERED: ALBUTEROL 2.5 MG/3 ML NEB RESP TX PRN (02:25)
[2022-09-18] MEDS ORDERED: ACETAMINOPHEN 325 MG TABLET PO PRN (02:25)
[2022-09-18] MEDS ORDERED: SODIUM CHLOR 0.9% KCL 20 MEQ 20 MEQ/1,000 ML BAG IV SCH (03:15)
[2022-09-18 03:48] LABS: Basophils % 0.3 % (0.0-0.8); Eosinophils # 0.2 10*3/uL (0.0-0.87); Eosinophils % 2.4 % (0.00-10.9); Hematocrit 34.8 VOL% (35.7-47.0); Hemoglobin 11.7 GM/DL (12.0-16.0); Immature Granulocytes % 0.3 %; Immature Granulocytes Absolute 0.03 #; Lymphocytes # 1.3 10*3/uL (1.4-4.0); Lymphocytes % 13.8 % (21.3-54.2); Mean Corpuscular HGB Conc 33.6 GM/DL (32-36); Mean Corpuscular Volume 95.9 FL (87-102); Mean Platelet Volume 9.3 FL (9.6-12.0); Monocytes # 0.4 10*3/uL (0.11-0.8); Monocytes % 4.2 % (1.7-12.7); Platelet Count 367 T/CUMM (130-400); Red Blood Count 3.63 MC/CUMM (3.8-5.5); Red Cell Distribution Width 15.4 % (9.3-17.3)
[2022-09-18 04:11] LABS: PT Patient Result 10.8 SECS (10.1-12.1)
[2022-09-18 04:12] LABS: Alanine Aminotransferase 13 U/L (13-56); Albumin 2.7 G/DL (3.4-5.0); Alkaline Phosphatase 81 U/L (45-117); Aspartate Amino Transferase 11 U/L (0-37); Bilirubin,Total < 0.39 MG/DL (0.20-1.00); Blood Urea Nitrogen 5 MG/DL (7-18); Calcium 8.3 MG/DL (8.5-10.1); Carbon Dioxide 26 MMOL/L (21-32); Chloride 105 MMOL/L (98-107); Glucose 127 MG/DL (74-106); Osmolality,Calculated 273.7 MOS/KG (273-304); Potassium 3.6 MMOL/L (3.5-5.1); Sodium 138 MMOL/L (136-145); Total Protein 6.7 G/DL (6.4-8.2)
[2022-09-18] MEDS: ONDANSETRON 4 MG/2 ML VIAL IV PRN ×2 (06:27→23:22)
[2022-09-18] MEDS: HYDROmorphone 1 MG/1 ML SYRINGE IV PRN ×3 (06:27→20:54)
[2022-09-18] MEDS ORDERED: PANTOPRAZOLE 40 MG TABLET PO SCH (09:00)
[2022-09-18] MEDS: DOCUSATE SODIUM 100 MG CAPSULE PO SCH ×2 (10:00→20:50)
[2022-09-18] MEDS: POTASSIUM CHLORIDE INJ 10 MEQ in DEXTROSE 5% LACTATED RINGERS 1,000 ML IV SCH ×3 (13:41→19:00)
[2022-09-18] MEDS: ursodioL 300 MG CAPSULE PO SCH ×2 (13:56→20:50)
[2022-09-18] MEDS: PANTOPRAZOLE 40 MG VIAL IV SCH (20:50)
[2022-09-18] MEDS: ENOXAPARIN 40 MG/0.4 ML SYRINGE SUBCUT SCH (20:51)
[2022-09-19] MEDS: POTASSIUM CHLORIDE INJ 10 MEQ in DEXTROSE 5% LACTATED RINGERS 1,000 ML IV SCH ×3 (00:56→14:07)
[2022-09-19] MEDS: HYDROmorphone 1 MG/1 ML SYRINGE IV PRN ×4 (01:10→20:49)
[2022-09-19] MEDS: cefTRIAXone 1,000 MG in SODIUM CHLORIDE 0.9% 100 ML IV SCH (02:41)
[2022-09-19 05:13] LABS: Basophils % 0.3 % (0.0-0.8); Eosinophils # 0.3 10*3/uL (0.0-0.87); Eosinophils % 4.3 % (0.00-10.9); Hematocrit 28.7 VOL% (35.7-47.0); Hemoglobin 9.4 GM/DL (12.0-16.0); Immature Granulocytes % 0.4 %; Immature Granulocytes Absolute 0.03 #; Lymphocytes # 1.5 10*3/uL (1.4-4.0); Lymphocytes % 22.7 % (21.3-54.2); Mean Corpuscular HGB Conc 32.8 GM/DL (32-36); Mean Platelet Volume 9.3 FL (9.6-12.0); Monocytes # 0.4 10*3/uL (0.11-0.8); Monocytes % 6.4 % (1.7-12.7); Neutrophils % 65.9 % (38.7-73.9); Platelet Count 264 T/CUMM (130-400); Red Cell Distribution Width 15.5 % (9.3-17.3); White Blood Count 6.77 T/CUMM (4-12)
[2022-09-19 05:37] LABS: Alanine Aminotransferase < 9 U/L (13-56); Alkaline Phosphatase 68 U/L (45-117); Aspartate Amino Transferase 7 U/L (0-37); Bilirubin,Total < 0.39 MG/DL (0.20-1.00); Blood Urea Nitrogen 6 MG/DL (7-18); Calcium 7.9 MG/DL (8.5-10.1); Carbon Dioxide 26 MMOL/L (21-32); Chloride 110 MMOL/L (98-107); Glucose 108 MG/DL (74-106); Osmolality,Calculated 277.4 MOS/KG (273-304); Potassium 3.4 MMOL/L (3.5-5.1); Sodium 140 MMOL/L (136-145); Total Protein 5.2 G/DL (6.4-8.2)
[2022-09-19] MEDS ORDERED: POTASSIUM CHLORIDE 20 MEQ TABLET PO ONE (07:10)
[2022-09-19] MEDS: DOCUSATE SODIUM 100 MG CAPSULE PO SCH (08:06)
[2022-09-19] MEDS: ursodioL 300 MG CAPSULE PO SCH ×2 (08:06→20:37)
[2022-09-19] MEDS: ONDANSETRON 4 MG/2 ML VIAL IV PRN ×2 (08:08→14:11)
[2022-09-19] MEDS: PANTOPRAZOLE 40 MG VIAL IV SCH ×2 (08:08→20:37)
[2022-09-19] MEDS: PROMETHAZINE INJ 25 MG in SODIUM CHLORIDE 0.9% 50 ML IV PRN (15:00)
[2022-09-19] MEDS: GABAPENTIN 600 MG TABLET PO SCH ×2 (17:30→20:33)
[2022-09-19] MEDS: PARoxetine 20 MG TABLET PO SCH (20:33)
[2022-09-19] MEDS: ALPRAZolam 0.5 MG TABLET PO SCH (20:34)
[2022-09-19] MEDS: ENOXAPARIN 40 MG/0.4 ML SYRINGE SUBCUT SCH (20:36)
[2022-09-19] MEDS: TRIAZOLAM 0.25 MG PO SCH (21:04)
[2022-09-19] MEDS: NON-FORMULARY MEDICATION (Fluticasone-Umeclidin-Vilanter [Trelegy Ellipta] 200-62.5-25 mcg INH SCH (21:05)
[2022-09-20] MEDS: cefTRIAXone 1,000 MG in SODIUM CHLORIDE 0.9% 100 ML IV SCH (02:07)
[2022-09-20 07:01] LABS: Basophils % 0.6 % (0.0-0.8); Eosinophils # 0.4 10*3/uL (0.0-0.87); Eosinophils % 8.2 % (0.00-10.9); Hematocrit 30.7 VOL% (35.7-47.0); Immature Granulocytes % 0.4 %; Immature Granulocytes Absolute 0.02 #; Lymphocytes # 1.4 10*3/uL (1.4-4.0); Lymphocytes % 27.2 % (21.3-54.2); Mean Corpuscular HGB Conc 32.6 GM/DL (32-36); Mean Corpuscular Volume 100.7 FL (87-102); Mean Platelet Volume 9.6 FL (9.6-12.0); Monocytes # 0.4 10*3/uL (0.11-0.8); Monocytes % 6.9 % (1.7-12.7); Neutrophils % 56.7 % (38.7-73.9); Platelet Count 254 T/CUMM (130-400); Red Blood Count 3.05 MC/CUMM (3.8-5.5); Red Cell Distribution Width 15.4 % (9.3-17.3); White Blood Count 5.22 T/CUMM (4-12)
[2022-09-20 07:29] LABS: Alanine Aminotransferase < 9 U/L (13-56); Alkaline Phosphatase 68 U/L (45-117); Aspartate Amino Transferase 7 U/L (0-37); Bilirubin,Total < 0.39 MG/DL (0.20-1.00); Blood Urea Nitrogen 5 MG/DL (7-18); Calcium 8.3 MG/DL (8.5-10.1); Carbon Dioxide 25 MMOL/L (21-32); Chloride 111 MMOL/L (98-107); Glucose 85 MG/DL (74-106); Osmolality,Calculated 278.1 MOS/KG (273-304); Potassium 3.6 MMOL/L (3.5-5.1); Sodium 142 MMOL/L (136-145); Total Protein 5.5 G/DL (6.4-8.2)
[2022-09-20] MEDS: GABAPENTIN 600 MG TABLET PO SCH ×3 (09:08→21:17)
[2022-09-20] MEDS: DULoxetine 30 MG CAPSULE PO SCH (09:08)
[2022-09-20] MEDS: ALPRAZolam 0.5 MG TABLET PO SCH ×2 (09:08→21:18)
[2022-09-20] MEDS: ursodioL 300 MG CAPSULE PO SCH (09:08)
[2022-09-20] MEDS: PANTOPRAZOLE 40 MG VIAL IV SCH ×2 (09:09→21:16)
[2022-09-20] MEDS: NON-FORMULARY MEDICATION (Fluticasone-Umeclidin-Vilanter [Trelegy Ellipta] 200-62.5-25 mcg INH SCH ×2 (09:10→21:16)
[2022-09-20] MEDS: HYDROmorphone 1 MG/1 ML SYRINGE IV PRN ×3 (10:58→21:25)
[2022-09-20] MEDS: AMOXICILLIN 875 MG TABLET PO SCH ×2 (17:16→21:14)
[2022-09-20] MEDS: ONDANSETRON 4 MG/2 ML VIAL IV PRN (18:03)
[2022-09-20] MEDS: PARoxetine 20 MG TABLET PO SCH (21:17)
[2022-09-20] MEDS: ENOXAPARIN 40 MG/0.4 ML SYRINGE SUBCUT SCH (21:17)
[2022-09-20] MEDS: TRIAZOLAM 0.25 MG PO SCH ×2 (21:29→23:44)
[2022-09-21] MEDS: GABAPENTIN 600 MG TABLET PO SCH ×3 (02:46→14:18)
[2022-09-21] MEDS: HYDROmorphone 1 MG/1 ML SYRINGE IV PRN ×2 (04:31→09:01)
[2022-09-21 07:55] LABS: Basophils % 0.8 % (0.0-0.8); Eosinophils # 0.5 10*3/uL (0.0-0.87); Eosinophils % 10.3 % (0.00-10.9); Hematocrit 30.2 VOL% (35.7-47.0); Hemoglobin 9.8 GM/DL (12.0-16.0); Immature Granulocytes % 0.4 %; Immature Granulocytes Absolute 0.02 #; Lymphocytes # 1.3 10*3/uL (1.4-4.0); Lymphocytes % 27.1 % (21.3-54.2); Mean Corpuscular HGB Conc 32.5 GM/DL (32-36); Mean Platelet Volume 9.6 FL (9.6-12.0); Monocytes # 0.3 10*3/uL (0.11-0.8); Monocytes % 6.5 % (1.7-12.7); Neutrophils % 54.9 % (38.7-73.9); Platelet Count 278 T/CUMM (130-400); Red Blood Count 3.02 MC/CUMM (3.8-5.5); Red Cell Distribution Width 15.5 % (9.3-17.3); White Blood Count 4.95 T/CUMM (4-12)
[2022-09-21 08:13] LABS: Calcium 7.7 MG/DL (8.5-10.1); Osmolality,Calculated 279.1 MOS/KG (273-304); Potassium 3.5 MMOL/L (3.5-5.1)
[2022-09-21] MEDS: AMOXICILLIN 875 MG TABLET PO SCH ×2 (09:00→20:46)
[2022-09-21] MEDS: DULoxetine 30 MG CAPSULE PO SCH (09:00)
[2022-09-21] MEDS: ALPRAZolam 0.5 MG TABLET PO SCH ×2 (09:00→20:48)
[2022-09-21] MEDS: ONDANSETRON 4 MG/2 ML VIAL IV PRN (09:00)
[2022-09-21] MEDS: PANTOPRAZOLE 40 MG VIAL IV SCH ×2 (09:00→20:50)
[2022-09-21] MEDS: NON-FORMULARY MEDICATION (Fluticasone-Umeclidin-Vilanter [Trelegy Ellipta] 200-62.5-25 mcg INH SCH ×3 (09:01→20:49)
[2022-09-21] MEDS: PROMETHAZINE INJ 25 MG in SODIUM CHLORIDE 0.9% 50 ML IV PRN ×2 (12:52→22:15)
[2022-09-21] MEDS ORDERED: MAGNESIUM SULF RIDER 2 GM/50 ML PREMIX IV ONE (13:00)
[2022-09-21] MEDS: POTASSIUM CHLORIDE 20 MEQ TABLET PO PRN ×2 (14:18→16:03)
[2022-09-21] MEDS: ENOXAPARIN 40 MG/0.4 ML SYRINGE SUBCUT SCH (20:47)
[2022-09-21] MEDS: PARoxetine 20 MG TABLET PO SCH (20:47)
[2022-09-21] MEDS: TRIAZOLAM 0.25 MG PO SCH (20:48)
[2022-09-21] MEDS: COLESTIPOL 1 GM TABLET PO SCH (22:15)
[2022-09-22 05:50] LABS: Basophils % 0.8 % (0.0-0.8); Eosinophils # 0.5 10*3/uL (0.0-0.87); Eosinophils % 12.3 % (0.00-10.9); Hematocrit 27.7 VOL% (35.7-47.0); Hemoglobin 8.8 GM/DL (12.0-16.0); Immature Granulocytes % 0.3 %; Immature Granulocytes Absolute 0.01 #; Lymphocytes # 1.4 10*3/uL (1.4-4.0); Lymphocytes % 36.1 % (21.3-54.2); Mean Corpuscular HGB Conc 31.8 GM/DL (32-36); Mean Corpuscular Volume 98.9 FL (87-102); Mean Platelet Volume 9.3 FL (9.6-12.0); Monocytes # 0.2 10*3/uL (0.11-0.8); Monocytes % 6.1 % (1.7-12.7); Neutrophils % 44.4 % (38.7-73.9); Platelet Count 268 T/CUMM (130-400); Red Cell Distribution Width 15.2 % (9.3-17.3); White Blood Count 3.91 T/CUMM (4-12)
[2022-09-22 06:06] LABS: Calcium 7.9 MG/DL (8.5-10.1); Osmolality,Calculated 279.1 MOS/KG (273-304); Potassium 3.3 MMOL/L (3.5-5.1)
[2022-09-22 06:15] LABS: Eosinophils 13 % (0-10); Lymphocytes 30 % (20-55); Total Cells Counted 100
[2022-09-22 06:16] LABS: Platelet Estimate Normal
[2022-09-22 08:18] VITALS: BP 156/80
[2022-09-22] MEDS: ALPRAZolam 0.5 MG TABLET PO SCH (08:23)
[2022-09-22] MEDS: DULoxetine 30 MG CAPSULE PO SCH (08:23)
[2022-09-22] MEDS: AMOXICILLIN 875 MG TABLET PO SCH (08:23)
[2022-09-22] MEDS: GABAPENTIN 600 MG TABLET PO SCH (08:23)
[2022-09-22] MEDS: NON-FORMULARY MEDICATION (Fluticasone-Umeclidin-Vilanter [Trelegy Ellipta] 200-62.5-25 mcg INH SCH (08:24)
[2022-09-22] MEDS: PANTOPRAZOLE 40 MG VIAL IV SCH (08:24)
[2022-09-22] MEDS: COLESTIPOL 1 GM TABLET PO SCH (10:45)
== END 2022-09-22 11:40 | disposition home or self-care (01) | DRG 439 ==
LOC: EDBD → EDUNIT# → N.ED 22:41 → SUATTDRO 09-18 02:25 → N.EDINP 09-18 02:25 → N.2E 09-18 03:40
PROVIDERS: ADMIT Internal Medicine; ATTEND Internal Medicine